=== PATIENT | female | born 1975 | race Caucasian/White ===

== ENCOUNTER 2018-09-13 01:50 | Outpatient (CLI) | payer MEDICAID, SELFPAY ==
[2018-09-13 13:04] LABS: HCG Quant, Pregnancy 13550 mIU/mL (1-3)
== END 2018-09-13 02:10 ==
PROVIDERS: PCP Nurse Practitioner Adult Health; Visit Provider Obstetrics & Gynecology
DX: N92.6 Irregular menstruation, unspecified (principal)
CPT/HCPCS: 36415; 84702

== ENCOUNTER 2018-09-15 02:56 | Outpatient (CLI) | payer MEDICAID, SELFPAY ==
[2018-09-15 08:52] LABS: HCG Quant, Pregnancy 19631 mIU/mL (1-3)
== END 2018-09-15 03:16 ==
PROVIDERS: PCP Nurse Practitioner Adult Health; Visit Provider Obstetrics & Gynecology
DX: N92.6 Irregular menstruation, unspecified (principal)
CPT/HCPCS: 36415; 84702

== ENCOUNTER 2018-11-02 08:54 | Emergency (ER) | payer MEDICAID, SELFPAY ==
--- NOTE | 2018-11-02 08:56 | W.ED.GENAD ---
Discharge Plan Disposition Patient Disposition: HOME Condition: Stable Discharge Details Chief Complaint: DentalOral Clinical Impression: Pain due to dental caries, Infected dental caries Primary Care Provider: DARIN MAHAN ED Provider: Krystle Parker Home Meds and New Rx's Prescriptions: New penicillin V potassium 500 mg tablet 500 mg PO QID 7 Days Qty: 28 RF: 0 Continued aspirin [Aspirin Childrens] 81 mg Tablet,Chewable 162 mg PO DAILY RF: 0 PNV cmb#95-ferrous fumarate-FA [] 28 mg iron- 800 mcg Tablet 1 tab PO DAILY RF: 0 Discharge Instructions Instructions: Dental Caries (ED) Additional Instructions: Take the antibiotics until finished. Take tylenol as needed and directed for pain. Call your dentist tomorrow morning to schedule a follow up appointment for re-evaluation. 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 Return immediately to the emergency department if you develop any worsening or new concerning symptoms. Discharge Data Discharge Physician: Krystle Parker Medical Decision Making 42yo F who is 13 weeks w/ c/o L upper dental pain for 5 days with concern for dental abscess. Pt appears nontoxic. BP on arrival 158/86. She has not taken any pain meds this morning for her dental pain. She denies any headache, blurry vision, neck pain, leg pain or swelling. She denies any previous history of preeclampsia with her pregnancies. Recheck BP 136/85. There is no abscess noted on exam. She has 2 areas of severe tooth decay left upper jaw with surrounding erythema and tenderness but no discrete abscess noted. No trismus, drooling or submandibular swelling. We will send home with a prescription for pen V K. She is instructed to call her dentist tomorrow morning to schedule a follow-up appointment for reevaluation, and to follow-up with her OB this week for continued monitoring of her blood pressure. She is instructed return here if she has any worsening or new concerning symptoms. HPI General Mode of arrival: ambulatory. Date/Time Provider Initiated Documentation: 11/02/18 08:55. Limitations to Documentation: no limitations. Information obtained by: patient. HPI Narrative: Patient is a 42-year-old female who presents to the ED with complaint of left upper toothache for the past 5 days. Patient states she has a history of decayed teeth in the area of her pain but has not had them extracted yet. Patient states she is now 13 weeks being followed by OB in [place]. Patient denies any recent antibiotics. She denies any fever, difficulty swallowing, headache or neck pain. She has not taken anything for pain today. Last menstrual period 07/31/2018. Related Data Home Medications Medication Instructions Recorded Confirmed PNV cmb#95-ferrous fumarate-FA 1 tab PO DAILY 11/02/18 11/02/18 [] aspirin [Aspirin Childrens] 162 mg PO DAILY 11/02/18 11/02/18 penicillin V potassium 500 mg PO QID 7 Days #28 tab 11/02/18 Previous Rx's Medication Instructions Recorded penicillin V potassium 500 mg PO QID 7 Days #28 tab 11/02/18 Allergies Allergy/AdvReac Type Severity Reaction Status Date / Time hydrocodone bitartrate AdvReac Intermediate Nausea Unverified 11/02/18 09:04 [From Vicodin] Review of Systems Review of Systems All systems reviewed & are unremarkable except as noted in HPI and below Constitutional Reports as per HPI, Denies chills and Denies fever(s) Eyes Denies blurry vision ENT Reports dental pain, Denies dizziness, Denies sore throat and Denies throat swelling Cardiovascular Denies chest pain and Denies dyspnea Respiratory Denies cough and Denies dyspnea Gastrointestinal Denies abdominal pain, Denies diarrhea and Denies vomiting Genitourinary Denies hematuria and Denies dysuria Musculoskeletal Denies back pain and Denies numbness Integumentary/Breasts Denies lesions and Denies rash Neurologic Denies dizziness, Denies focal weakness and Denies numbness Allergic/Immunologic Denies throat swelling [facility] Medical History Hypertension (Chronic) Surgical History History of section (Chronic) Hx of cholecystectomy (Chronic) Social History Smoking/Tobacco Use Status: Current every day Tobacco Type: cigarettes Alcohol Intake: never Drug use: Never Do you feel safe in your relationship?: Yes Exam Const General: cooperative, healthy appearing and no acute distress HENMT Head: normal to inspection Ears: hearing grossly normal bilaterally, external ears normal and TM's normal bilaterally General nose exam: external nose normal and nares normal Face and sinus: normal facial exam Mouth: oral mucosae normal Teeth image: 1. Black discoloration of remaining small portions of teeth, majority of both teeth decayed and missing. Erythema, mild edema, and tenderness to palpation of mucosa above this teeth. No fluctuance or abscesses noted. Throat: posterior oropharynx normal, tonsils normal, uvula midline and no peritonsillar masses Eyes General: appearance normal, both eyes and all related structures Neck Neck: normal visual inspection, no lymphadenopathy, no meningeal signs, trachea midline, supple and no anterior neck swelling Resp Effort & Inspection: normal respiratory effort and able to speak in complete sentences Cardio Rate: regular rate Skin General skin exam: no rashes or lesions noted Neuro General: alert, awake and oriented x3 Motor: muscle tone normal throughout Extrem General: normal to inspection and full ROM Psych Appearance: grossly normal Affect: normal affect
[2018-11-02 08:59] VITALS: BP 158/86; PULSE 85; RESP 16; TEMP 36.4; O2SAT 98
[2018-11-02 09:16] VITALS: BP 136/85; PULSE 79; RESP 16; O2SAT 98
== END 2018-11-02 09:17 | disposition home or self-care (01) ==
PROVIDERS: Emergency Provider Physician Assistant; PCP Nurse Practitioner Adult Health
DX: K02.9 Dental caries, unspecified (principal)
CPT/HCPCS: 99283

== ENCOUNTER 2022-06-29 08:12 | Emergency (ER) | payer MEDICAID, SELFPAY ==
[2022-06-29 08:17] VITALS: BP 182/97; PULSE 80; RESP 18; TEMP 36.5; O2SAT 98
--- NOTE | 2022-06-29 08:21 | ED.GENADUL_ITS ---
Discharge Plan Disposition Patient Disposition: Home Discharge Details Clinical Impression: Sprain of left foot Primary Care Provider: Shanice Galvez ED Provider: Jason Hernandez Home Meds and New Rx's Prescriptions: Continued fluoxetine 40 mg capsule 60 mg PO DAILY clindamycin HCl 150 mg capsule 150 mg PO TID Patient Comments: TAKE 3 CAPSULE BY MOUTH THREE TIMES A DAY amlodipine 2.5 mg tablet 2.5 mg PO DAILY trazodone 100 mg tablet 100 mg PO QHS Patient Comments: TAKE 1/2 TO 1 TABLET BY MOUTH AT BEDTIME NEEDED FOR SLEEP bupropion HCl 300 mg tablet extended release 24 hr 300 mg PO DAILY losartan-hydrochlorothiazide 100-12.5 mg tablet 1 tab PO DAILY Discharge Instructions Instructions: Foot Sprain (ED) Additional Instructions: Please wear walking boot for the next 2 weeks during any weightbearing activity. You may perform weightbearing activities as tolerated. If not improving fo llow-up with your primary care provider. You may continue to use [id number] pain medication as needed for discomfort and apply ice for 20 minutes at a time with at least 40 minutes in between applications to help with any swelling or discomfort. If you develop any new or significant worsening of symptoms feel free to return the emergency department for reassessment. Referrals: Shanice Galvez [Primary Care Provider] - 2 weeks (If not showing signs of improvement follow-up for consideration of referral to podiatry) Discharge Data Discharge Date/Time-TO BE ENTERED AT DEPARTURE: 06/29/22 09:05 Medical Decision Making Patient presenting to the emergency department for chief complaint of left foot injury. She states that 2 weeks ago she was dancing and injured her foot. She was initially seen and evaluated and told it was a sprain but due to continued significant pain and discomfort especially with walking she is here for evaluation. Patient denies any other injury or trauma. Denies any need for pain medication at this time. Physical exam shows point tenderness to the medial aspect of the midfoot otherwise exam is unremarkable. We will plan on performing radiological imaging for consideration of acute/subacute fracture. Review of radiological imaging and radiologist interpretation shows no acute fracture. Discussed treatment modalities with patient and after discussion patient states that she would prefer to be in a walking boot. We discussed standard care of foot sprain along with return and follow-up precautions. After discussion of diagnosis and plan of care patient has no further needs, questions, or concerns and states clear understanding to return to the emergency department for any worsening symptoms. This documentation was generated using STEARCLEAR dictation system, please disregard any oddities of phrase or misspellings. Imaging Data Radiologic Study: Attestation: I personally reviewed and interpreted this imaging study as follows: Imaging: X-Ray Radiologist's impression: EXAM: XR FOOT LT COMPLETE CLINICAL HISTORY: medial foot pain. TECHNIQUE: 2D digital imaging was performed. COMPARISON: No exams were available for comparison FINDINGS: 3 views No evidence of acute fracture or diastasis of the Lisfranc joint. No radiopaque foreign body. Bone density normal. No osseous lesions. Small sesamoid bone noted on the medial aspect the foot adjacent to the navicular tuberosity. This is most probably within the distal tibialis posterior tendon. Variant of normal. IMPRESSION: No significant osseous findings in foot. HPI General Mode of arrival: ambulatory . Date/Time Provider Initiated Documentation: 06/29/22 08:19 . Limitations to Documentation: no limitations . Information obtained by: patient and RN notes reviewed . History of Present Illness 46 year old F presents to the emergency department with the chief complaint of Left foot injury, described as moderate, Quality is described as aching, and is localized to the left and lower extremity. Patient reports no radiation. Patient started experiencing this week(s) (2) and it has been constant. No relieving factors improve symptom(s), No exacerbating factors reported . Patient notes no other symptoms.. Patient did receive the following treatments prior to arrival, none Related Data Home Medications Medication Instructions Recorded Confirmed amlodipine 2.5 mg tablet 2.5 mg PO DAILY 06/29/22 06/29/22 bupropion HCl 300 mg 24 hr tablet, 300 mg PO DAILY 06/29/22 06/29/22 extended release clindamycin HCl 150 mg capsule 150 mg PO TID 06/29/22 06/29/22 fluoxetine 40 mg capsule 60 mg PO DAILY 06/29/22 06/29/22 losartan 100 1 tab PO DAILY 06/29/22 06/29/22 mg-hydrochlorothiazide 12.5 mg tablet trazodone 100 mg tablet 100 mg PO QHS 06/29/22 06/29/22 Allergies Allergy/AdvReac Type Severity Reaction Status Date / Time hydrocodone bitartrate AdvReac Intermediate Nausea Unverified 06/29/22 08:23 [From Vicodin] General Stated Complaint: Orthopedic LUCIA: 4 Review of Systems Narrative: 6 systems reviewed and unremarkable except what is marked below. Musculoskeletal Musculoskeletal: Reports as per HPI, Reports arthralgias, Denies numbness and Denies tingling Integumentary/Breasts Skin/Breast: Denies erythema Neurologic Neurologic: Denies numbness and Denies tingling PFSH All Active Problems (Updated 06/29/22 @ 08:56 by Jason Hernandez NP) Sprain of left foot (Acute) Medical History (Updated 06/29/22 @ 08:56 by Jason Hernandez NP) Hypertension Surgical History History of section Hx of cholecystectomy Social History Smoking/Tobacco Use Status: Current every day Tobacco Type: cigarettes Smoking risk assessment performed?: Yes Alcohol Intake: never Drug use: Never Substance use type: does not use Do you feel safe at home: Yes Do you feel safe in your relationship?: Yes Exam Const General: cooperative, no acute distress and not ill appearing Orientation: alert, awake and oriented x3 Resp Effort & Inspection: normal respiratory effort, able to speak in complete sentences and no respiratory distress Cardio Rate: regular rate Rhythm: regular rhythm Pulses: posterior tibial pulses present and dorsalis pedis present Skin General skin exam: no rashes or lesions noted Neuro General: patient alert, patient awake, patient oriented x3, moves all extremities and no focal motor deficits Sensory Exam: no sensory deficits noted Extrem General: normal exam except as noted Left lower extremity: foot Details: normal to inspection, tenderness Location: of the medial foot Location: in the mid-section; not of the base of the 5th metatarsal, toes with normal ROM, no edema, vascular exam Details: dorsalis pedis pulse present, posterior tibial pulse present and normal capillary refill and motor-sensory exam Details: two point discrimination normal and light-touch normal; no unusual warmth Course Vital Signs Vital signs: Vital Signs Temperature 36.5 C 06/29/22 08:17 Pulse 80 06/29/22 08:17 Respiratory Rate 18 06/29/22 08:17 Blood Pressure 182/97 H 06/29/22 08:17 Pulse Oximetry 98 06/29/22 08:17 Temperature 36.5 C 06/29/22 08:17 Temperature Source Oral 06/29/22 08:17 Pulse 80 06/29/22 08:17 Respiratory Rate 18 06/29/22 08:17 Blood Pressure 182/97 H 06/29/22 08:17 Blood Pressure Position Sitting 06/29/22 08:17 Pulse Oximetry 98 06/29/22 08:17 Oxygen Delivery Method Room Air 06/29/22 08:17 Oxygen Flow Rate 0 06/29/22 08:17 Pain Level 6 06/29/22 08:17
--- OUTSIDE RECORDS SUMMARY | 2022-06-29 08:21 | XMS_ITS ---
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 748236034 Problem Dysmenorrhea N94.6 Active 556529276 Problem Body mass index (BMI) of 40.1 to 44.9 in adult Z68.41 Active 503775432 Problem Essential hypertension I10 Active 44315579 ALLERGIES Substance Reaction Event Type Date Status Vicodin vomiting Drug Allergy Nov, Active ENCOUNTERS Encounter Location Date Diagnosis [address] [id number] Nov, Surgery follow-up examination Z09 [address] [id number] Oct, [address] [id number] Sep, [facility] Op [address] [place], [place] [id number] 24 Sep, 2021 Menorrhagia with regular cycle N92.0 ; Abnormality of right breast on screening mammogram R92.8 ; Essential hypertension I10 and Body mass index (BMI) of 40.1 to 44.9 in adult Z68.[address] [id number] 23 Sep, 2021 [facility] [address] [place] [address] 09 Sep, [address] [id number] August, [address] [id number] 17 May, 2021 Menorrhagia with regular cycle N92.0 ; Abnormality of right breast on screening mammogram R92.8 ; Essential hypertension I10 and Body mass index (BMI) of 40.1 to 44.9 in adult Z68.[address] [id number] 15 May, [address] [id number] Apr, Breast cancer screening by mammogram Z12.[address] [id number] Nov, Encntr for sap portal consultant exam (general) (routine) w/o abn findings Z01.419 ; Encounter for screening mammogram for malignant neoplasm of breast Z12.31 and Encounter for screening for malignant neoplasm of cervix Z12.[address] [id number] 17 May, 2019 care and examination Z39.[address] [id number] Apr, Encounter for routine follow-up Z39.[address] [id number] Apr, [address] [id number] Apr, Supervision of elderly primigravida in third trimester O09.[address] [id number] Mar, Supervision of elderly multigravida in third trimester O09.[address] [id number] Mar, Supervision of elderly multigravida in third trimester O09.[address] [id number] Mar, Supervision of elderly multigravida in third trimester O09.523 ; Maternal care due to low transverse uterine scar from previous delivery O34.211 and Encounter for other general counseling or advice on contraception Z30.[address] [id number] Feb, Supervision of elderly multigravida in third trimester O09.523 and Encounter for immunization Z23 [address] [id number] Feb, [address] [id number] Feb, Supervision of elderly multigravida in third trimester O09.[address] [id number] Feb, [address] [id number] Feb, Supervision of elderly primigravida in third trimester O09.[address] [id number] Jan, [address] [id number] Jan, Encounter for supervision of elderly multigravida in second trimester, antepartum O09.522 and Flu vaccine need Z23 [address] [id number] 13 Dec, 2018 Supervision of elderly primigravida, second trimester O09.[address] [id number] Nov, Encounter for supervision of elderly multigravida in second trimester, antepartum O09.522 ; Maternal care due to low transverse uterine scar from previous delivery O34.211 and Tobacco smoking affecting in second trimester O99.[address] [id number] Oct, [address] [id number] Oct, Encounter for supervision of elderly multigravida in second trimester, antepartum O09.522 ; Encounter for screening examination for infectious disease Z11.9 ; Advanced maternal age, primigravida in first trimester, antepartum O09.511 and Maternal care due to low transverse uterine scar from previous delivery O34.[address] [id number] Oct, [address] [id number] Oct, [address] [id number] Sep, [address] [id number] Sep, Antepartum elderly multigravida in first trimester O09.521 ; Encounter for supervision of other normal , first trimester Z34.81 and Previous delivery, antepartum O34.[address] [id number] Sep, [address] [id number] August, Advanced maternal age, primigravida in first trimester, antepartum O09.511 ; Smoking (tobacco) complicating , first trimester O99.331 ; Chronic hypertension during O10.919 ; Supervision of other normal Z34.80 and Body mass index (BMI) of 40.1 to 44.9 in adult Z68.[address] [id number] August, [address] [id number] August, [address] [id number] August, [address] [id number] August, Irregular menses N92.[address] [id number] August, [facility] Op [address] [place], [place] [id number] Sep, [facility] [address] [facility] [address] [place], [place] [id number] Sep, Morbid obesity 278.01 ; Hypertension 401.9 and Cholelithiasis without obstruction 574.20 IMMUNIZATIONS Vaccine Route Administration Date Status COVID-19 (Moderna BOOSTER) mRNA,LNP-S,PF 50 mcg/0.25mL dose Unknown May 03, 2021 Adminis tered COVID-19 (Moderna) mRNA,LNP- S,PF 100 mcg/0.5mL dose Unknown September 21, 2020 Administered COVID-19 (Moderna) mRNA,LNP- S,PF 100 mcg/0.5mL dose Unknown August 22, 2020 Administered Tdap - Adult IM Intramuscular Mar 25, 2019 Administere d JEN - Flu VACC 6 MONTHS > IM Intramuscular Feb 06 9 Administered SOCIAL HISTORY Qualifiers Date Current Smoker REASON FOR REFERRAL FUNCTIONAL STATUS PLAN OF CARE Activity Details VITAL SIGNS Height 63 in 2021-06-15 Height 63 in 2019-12-18 Height 63 in 2019-06-15 Height 63 in 2019-05-20 Height 63 in 2019-03-25 Height 63 in 2018-10-16 Height 63 in 2018-09-26 Height 63 in 2018-09-12 Weight 241.4 lbs 2021-06-15 Weight 232.8 lbs 2019-12-18 Weight 213.8 lbs 2019-06-15 Weight 218.4 lbs 2019-05-20 Weight 230.2 lbs 2019-05-01 Weight 233.2 lbs 2019-04-24 Weight 230.0 lbs 2019-04-17 Weight 231.0 lbs 2019-04-10 Weight 233.2 lbs 2019-03-25 Weight 231.6 lbs 2019-03-13 Weight 234.4 lbs 2019-02-27 Weight 233.4 lbs 2019-02-06 Weight 231.6 lbs 2019-01-09 Weight 229.2 lbs 2018-12-12 Weight 229.2 lbs 2018-11-13 Weight 229.4 lbs 2018-10-16 Weight 235 lb 0 oz lbs 2018-09-26 Weight 228.4 lbs 2018-09-12 Temperature 97.5 degrees Fahrenheit Heart Rate 78 /min 2009-09-30 BMI 42.76 kg/m2 2021-06-15 BMI 41.23 kg/m2 2019-12-18 BMI 37.87 kg/m2 2019-06-15 BMI 38.68 kg/m2 2019-05-20 BMI 41.31 kg/m2 2019-03-25 BMI 40.636 kg/m2 2018-10-16 BMI 41.62 kg/m2 2018-09-26 BMI 40.45 kg/m2 2018-09-12 Blood pressure systolic 158 mm Hg Blood pressure diastolic 88 mm Hg 2021-05 MEDICATIONS Medication Instructions Dosage Frequency Start Date End Date Duration Status Lisinopril 20 MG Orally Once a day 1 tablet 24h 30 day(s) Active Aspirin 81 81 MG Orally Once a day 2 tablets 24h Not-Takin g Norethindrone 0.35 MG Orally Once a day 1 tablet 24h 28 day(s) Active Complete 14-0.4 MG Orally Once a day 1 tablet 24h Not-Takin g PROCEDURES Procedure Date Ordered Result Body Site CARE VISIT Jun 15, 2019 SUBSEQUENT CARE May 01, 2019 SUBSEQUENT CARE November 13, 2018 SUBSEQUENT CARE Jan 09, 2019 SUBSEQUENT CARE Mar 25, 2019 SUBSEQUENT CARE Apr 10, 2019 CARE VISIT May 20, 2019 SUBSEQUENT CARE Feb 27, 2019 IMMUNIZATION ADMINISTRATION Mar 25, 2019 INITIAL CARE VISIT October 16, 2018 SUBSEQUENT CARE Apr 17, 2019 IMMUNIZATION ADMINISTRATION Feb 06, 2019 Tdap - Adult Mar 25, 2019 SUBSEQUENT CARE Dec 12, 2018 SUBSEQUENT CARE Mar 13, 2019 JEN - Flu VACC 6 MONTHS > Feb 06, 2019 SUBSEQUENT CARE Feb 06, 2019 SUBSEQUENT CARE Apr 24, 2019 RESULTS Name Result Date Reference Range CBC, NO DIFF 2021-10-20 WBC 8.6 4.8-10.8 RBC 4.16 4.20-5.40 HGB 14.0 12.0-16.0 HCT 41.8 37.0-47.0 MCV 100.5 81.0-99.0 MCH 33.7 27.0-31.0 MCHC 33.5 32.0-37.0 RDW-CV 13.7 11.5-14.5 PLT 312 130-400 SURGICAL PATH 2021-10-20 COVID 19 [facility] PCR (Cepheid) AUTHORIZED ONLY 2021-10-20 SARS-CoV-2, PCR NOT DETECTED NOT DETECTED COV 4PLX COMMENT This test has been authorized by FDA under an EUA for use by authorized laboratories. False negative results may occur if virus is present at levels below the analytical limit of detection. US PELVIC ULTRASOUND 2021-06-21 US BREAST RIGHT LIMITED 2021-06-21 MG MAMMOGRAPHY BILATERAL SCREENING 2021-06-15 MG MAMMOGRAPHY BILATERAL SCREENING 2020-02-02 Pap Lb, rfx HPV all pth 2019-12-18 . Note: . Clinical history: DIAGNOSIS: Specimen adequacy: Additional comment: Recommendation: Performed by: Electronically signed by: Test ordered: Maturation index: Amended report: Addendum: QC reviewed by: Cytology history: Special procedure: QA comment: Diagnosis provided by: Source: Pathologist provided ICD9: Clinician provided ICD9: Interpretation LBP CPT Code Automation HEMOGLOBIN/HEMATOCRIT 2019-05-06 HGB 11.7 12.0-16.0 HCT 34.1 37.0-47.0 CBC, WITH MANUAL DIFF 2019-05-05 WBC 10.4 4.8-10.8 RBC 4.26 4.20-5.40 HGB 13.5 12.0-16.0 HCT 39.1 37.0-47.0 MCV 91.8 81.0-99.0 MCH 31.7 27.0-31.0 MCHC 34.5 32.0-37.0 RDW-CV 13.7 11.5-14.5 PLT 337 130-400 MPV 9.6 7.4-10.4 MANUAL DIFF MANUAL DIFFERENTIAL SEGS 69 42-75 BANDS 0-6 LYMPHS 27 20-51 CAMERON. LYMPHS <=1 MONOS 3 2-9 EOS 1 0-3 BASO 0-1 METAS MYELOS NRBC PLT ESTIMATE ADEQUATE ADEQUATE RBC MORPH NORMAL NORMAL ANISO POIK MICRO MACRO HYPO POLYCHROM TYPE AND SCREEN 2019-05-05 ABORh O POSITIVE ANTIBODY SCREEN NEGATIVE NEGATIVE TS COMM Pre-op Type & Screen specimens are valid for 7 days. If the patient has been transfused or been within the past 3 months, the specimen is only valid for 3 days. URINE DIP ([facility]) 2019-05-01 Color Clarity Glucose negative Bilirubin Ketones Specific Brandon Blood PH Protein negative Uro Nitrates Leukocytes URINE DIP ([facility]) 2019-04-24 Color Clarity Glucose negative Bilirubin Ketones Specific Brandon Blood PH Protein negative Uro Nitrates Leukocytes URINE DIP ([facility]) 2019-04-17 Color Clarity Glucose negative Bilirubin Ketones Specific Brandon Blood PH Protein negative Uro Nitrates Leukocytes URINE DIP ([facility]) 2019-04-10 Color Clarity Glucose negative Bilirubin Ketones Specific Brandon Blood PH Protein negative Uro Nitrates Leukocytes URINE DIP ([facility]) 2019-03-25 Color Clarity Glucose negative Bilirubin Ketones Specific Brandon Blood PH Protein negative Uro Nitrates Leukocytes URINE DIP ([facility]) 2019-03-13 Color Clarity Glucose negative Bilirubin Ketones Specific Brandon Blood PH Protein negative Uro Nitrates Leukocytes URINE DIP ([facility]) 2019-02-27 Color Clarity Glucose negative Bilirubin Ketones Specific Brandon Blood PH Protein negative Uro Nitrates Leukocytes CBC, WITH AUTO DIFF 2019-02-06 WBC 11.9 4.8-10.8 RBC 3.52 4.20-5.40 HGB 11.5 12.0-16.0 HCT 33.7 37.0-47.0 MCV 95.7 81.0-99.0 MCH 32.7 27.0-31.0 MCHC 34.1 32.0-37.0 RDW-CV 13.4 11.5-14.5 PLT 286 130-400 MPV 10.1 7.4-10.4 NE% 78.0 42.2-75.2 LY% 16.4 20.5-51.1 MO% 3.6 1.7-9.3 EO% 1.4 0.9-2.9 BA% 0.3 0.0-0.8 NE# 9.2 1.4-6.5 LY# 2.0 1.2-3.4 MO# 0.4 0.1-0.6 EO# 0.2 0.0-0.2 BA# 0.0 0.0-0.2 URINE DIP ([facility]) 2019-02-06 Color Clarity Glucose negative Bilirubin Ketones Specific Brandon Blood PH Protein negative Uro Nitrates Leukocytes GLUCOSE JORGE GESTATIONAL(50GM) 2019-02-06 GLUCOSE - 1 HR POST 129 <=135 URINE DIP ([facility]) 2019-01-09 Color Clarity Glucose negative Bilirubin Ketones Specific Brandon Blood PH Protein negative Uro Nitrates Leukocytes CBC, WITH AUTO DIFF 2018-12-12 WBC 10.1 4.8-10.8 RBC 3.91 4.20-5.40 HGB 12.7 12.0-16.0 HCT 37.3 37.0-47.0 MCV 95.4 81.0-99.0 MCH 32.5 27.0-31.0 MCHC 34.0 32.0-37.0 RDW-CV 13.4 11.5-14.5 PLT 289 130-400 MPV 10.3 7.4-10.4 NE% 72.3 42.2-75.2 LY% 19.8 20.5-51.1 EO% 2.2 0.9-2.9 BA% 0.5 0.0-0.8 NE# 7.3 1.4-6.5 LY# 2.0 1.2-3.4 MO# 0.5 0.1-0.6 EO# 0.2 0.0-0.2 BA# 0.1 0.0-0.2 ALPHA FETOPROTEIN OSB ([id number]) 2018-12-12 Results Report Test Results: *Screen Negative* Gest. Age on Collection Date 18.6 Gestat. Age Based On LMP Maternal Age At NATHAN 41.4 Race Weight 269 Insulin Dep Diabetes No Multiple Gestation No AFP Value 34.1 AFP MoM 1.05 OSBR [place] 1 [place] [id number] Interpretation Comment Comment: Comment HEPATITIS B SURFACE ANTIGEN, 2018-12-12 HEP B SURFACE AG NON-REACTIVE NON-REACTIV E RUBELLA IGG ANTIBODY 2018-12-12 RUBELLA 16.2 >=10.0 RUB HEAD REFERENCE RANGE: (IU /mL) <5.0 : NON-IMMUNE 5.0 - 9.9 : SORTO ZONE >= 10.0 : IMMUNE TYPE AND SCREEN, 2018-12-12 ABORh O POSITIVE ANTIBODY SCREEN NEGATIVE NEGATIVE TS COMM Pre-op Type & Screen specimens are valid for 7 days. If the patient has been transfused or been within the past 3 months, the specimen is only valid for 3 days. HIV12P 2018-12-12 HIV1/O/2 Abs,P24Ag NON-REACTIVE NON-REACT AILYN SYPHILIS, 2018-12-12 SYPHILIS NON-REACTIVE NON-REACTIVE URINE DIP ([facility]) 2018-12-12 Color Clarity Glucose negative Bilirubin Ketones Specific Brandon Blood PH Protein negative Uro Nitrates Leukocytes CHLAMYDIA/GC by PCR URINE 2018-11-13 C.trach by PCR NOT DETECTED NOT DETECTED N. gonorrhoeae PCR NOT DETECTED NOT DETEC JANNETTE USR The patient should n ot have urinated for at least 1 hour prior to specimen collection. Female patients should not cleanse the labial area prior to collecting the specimen. Male patients should n URINE DIP ([facility]) 2018-11-13 Color Clarity Glucose negative Bilirubin Ketones Specific Brandon Blood PH Protein negative Uro Nitrates Leukocytes US OB GREATER THAN 14 WEEKS 2018-12-12 URINE DIP ([facility]) Color Clarity Glucose negative Bilirubin Ketones Specific Brandon Blood PH Protein negative Uro Nitrates Leukocytes CULTURE URINE 2018-10-16 CYSTIC FIBROSIS MUTATION 97 ([id number]) 2018-10-16 Interpretation: No variant detected. Cystic Fibrosis Mutation 97 Comment: InformaSeq() with XY Analysis 2018-10-16 Results Comment Screen results Comment Chromosome 21 result Comment Chromosome 21 Interpretation Comment Chromosome 18 Result Comment Chromosome 18 Interpretation Comment Chromosome 13 result Comment Chromosome 13 Interpretation Comment Sex Chromosome Result Comment Sex Chromosome Interpretation Comment Comments Comment Number 1 Gestational Age at Collection 10.7 Race Weight 229 Indication for Testing Comment Test Description Comment Test Limitations Comment Disclaimer Comment Director Review Comment PDF . 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 end of september, stopped on 10/30. 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 6 wk pp, slowly starting to go back to work, sleep is going ok, nursing seems to be well, POLICE SERVICE TECHNICIAN 2 week postop , nursing is going well, supply is good, he sleeps in bed with them and usually sleeps from 11pm-4am, POLICE SERVICE TECHNICIAN delivery with bilateral tubal ligation, OB follow up, OB follow up, OB follow up, OB follow up, Preop for delivery with bilateral tubal ligations, OB follow up, schedule , OB follow up, Tdap, OB follow up ob , Abscess tooth, OB follow up, OB follow up, OB follow up, Headache, OB follow up, left msg w/msg mgmt, Informaseq-incorrect race, OB INITIAL EXAM, gender results, OBnew OB, genetic testing, *POLICE SERVICE TECHNICIAN 2 week follow up, 09/16 Lab results, *UPDATE HCG Numbers, BP medication, discussion-options, + home upt, pre load, AMANDA Lap alejandra poss open, AMANDA gallstones. Pthad GB problems last fall. Pt got very ill a few weeks ago and had a u/s that shows stones. Insurance Providers Health Insurance Type Health Plan Insurance Address Health Plan Insurance Phone Health Plan Insurance Name Health Plan Coverage Dates Member ID Patient Relationship to Subscriber Patient Address Patient Phone Patient Name Patient Date of Subscriber ID Subscriber Name Subscriber Date of Group No [place] [address] [facility] [id number] [place] self Petra Maldonadokarsten rs [id number] [place] [address] ATTN CLAIMS [facility] [id number] [place] Desmaryamleo rs [id number]
--- OUTSIDE RECORDS SUMMARY | 2022-06-29 08:21 | XMS_ITS | Continuity of Care Document ---
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 Role Phone Shanice Galvez APRN Primary Care Physician Encounter [facility] [id number] Date(s): 06/20/22 - 06/20/[address] [address] Encounter Diagnosis Dental caries(Discharge Diagnosis) - 06/20/22 Sprain of left foot(Discharge Diagnosis) - 06/20/22 Discharge Disposition: Home or Self Care Attending Physician: Alfred Cedillo MD Admitting Physician: Alfred Cedillo MD Allergies, Adverse Reactions, Alerts Substance Reaction Severity Status Vicodin Unknown Active Functional Status 06/20/22 Other exposure to Infectious Disease Non e Medications amLODIPine 2.5 mg oral tablet 2.5 mg = 1 tab, Oral, Daily, # 30 tab, 0 Refill(s) Start Date: 06/20/22 Status: Ordered amoxicillin 500 mg oral capsule 500 mg = 1 cap, Oral, TID, X 10 days, # 30 cap, 0 Refill(s), 06/30/22 9:47:00 EST, [id number], 162, cm, 06/20/22 8:50:00 EST, Height/Length Dosing, 105, kg, 06/20/22 8:50:00 EST, Weight Dosing Start Date: 06/20/22 Stop Date: 06/30/22 Status: Ordered buPROPion 300 mg/24 hours (XL) oral tablet, extended release 300 mg = 1 tab, Oral, Daily, # 30 tab, 0 Refill(s) Start Date: 06/20/22 Status: Ordered FLUoxetine 20 mg oral capsule 20 mg = 1 cap, Oral, Daily, # 30 cap, 0 Refill(s) Start Date: 06/20/22 Status: Ordered losartan-hydrochlorothiazide 100mg-12.5mg oral tablet TAKE ONE TABLET BY MOUTH EVERY DAY FOR BLOOD PRESSURE Start Date: 06/20/22 Status: Ordered traZODone 100 mg oral tablet 100 mg = 1 tab, Oral, BID, # 180 tab, 0 Refill(s) Start Date: 06/20/22 Status: Ordered Vital Signs Most recent to oldest [Reference Range]: 1 Temperature Temporal Artery [36-38 Deg C ] 36 Deg C (06/20/22 8:27 AM) Peripheral Pulse Rate [60-100 bpm] 84 bp m (06/20/22 8:27 AM) Respiratory Rate [12-24 br/min] 16 br/mi n (06/20/22 8:27 AM) Blood Pressure [90-140/60-90 mmHg] 168/9 4mmHg *HI* (06/20/22 8:27 AM) Weight Dosing 105.00 kg (06/20/22 8:50 AM) Weight Estimated 105.00 kg (06/20/22 8:27 AM) Height/Length Dosing 162.000 cm (06/20/22 8:50 AM) Height/Length Estimated 162.000 cm (06/20/22 8:27 AM) Social History Social History Type Response Tobacco Never tobacco user T obacco Use:. Sex Physician Emergency department Note * Doug Robison MD: PERFORM, MODIFY Event Display: ED Note Physician Authored Date: [id number] MG VASQUEZ :1975 Age:46 years Sex:Female Visit Date:06/20/2022 Primary Care Physician: Shanice Galvez APRN Basic Information Time Seen: Doug Robison MD / 06/20/2022 09:39 Chief Complaint pt reports dental pain left upper mouth starting . pt reports left sided facial swelling. motrin this AM History Of Present Illness: Chronic??dental decay,??increasing dental pain over the last few days left upper??dentition,??also complaining of some discomfort in her foot from??dancing 4 days ago. ??Hurts with walking,??but has been ambulatory.?? Ecchymoses, no bony tenderness; points to area under arch. ??States she did not??have pain initially but??developed??a day or 2 after dancing,??now less painful if walking on outside of her??foot. ??Has taken low-dose Motrin.?? Patient acknowledges 6+ months of??dental decay/pain,it became acutely worse over the last??day or so with some slight facial swelling. ??No fevers. Review of Systems: Denies any antecedent illness or injury;??no cough, no trouble breathing, no fevers, no vomiting ordiarrhea, no swollen limbs,??no swollen joints, no rashes, no neurodeficits. Physical Exam Vitals & Measurements T:??36?C ??(Temporal Artery)?? HR:??84??(Peripheral)?? RR:??16?? BP:??168/94?? SpO2:??97%?? HT:??162.000??cm?? WT:??105.00??kg??(Estimated)?? Pain Score:??4?? O2 Therapy:??Room air?? Review of Systems: Constitutional: [No fevers] ENT: [Upper left dentalgia; chronic dental decay] Respiratory: [No shortness of breath, cough] Cardiovascular: [No Chest pain or palpitations] Gastrointestinal: [No nausea, vomiting, or diarrhea] Musculoskeletal: [No acute back pain, neck pain, joint pain; left foot arch discomfort] Integumentary: [No rash, pruritus, abrasions] Neurologic: [No focal sensory or motor complaints] ?? Physical Exam: General: [Alert and oriented, well nourished, no acute distress].?? Eye: [PERRL, EOMI, normal conjunctiva]. HENT: [Normocephalic, normal hearing, moist oral mucosa, no scleral icterus, no nasal discharge].? Minimal swelling left??maxillary area;??eroded premolar??left upper??dentition; black, down to gumline Neck: [Ranging neck, normal inspection].?No adenopathy Lungs: [Clear to auscultation, non-labored respiration, no tachypnea].?? Heart: [Normal rate, regular rhythm, no murmur, gallop or edema]. Musculoskeletal: [Normal range of motion and strength, no tenderness or swelling].?? No bony tenderness??in left foot or ankle; mild discomfort left arch, no swelling appreciable, no pain on axial load of??metatarsals Skin: [Skin is warm, dry and pink, no rashes or lesions]. Neurologic: [Awake, alert and oriented X4, normal tone, moving all extremities with good strength].[Ambulation intact; complains of discomfort with??normal walking but not with walking on the outside of her left foot.??does not have antalgic gait]. Psychiatric: [Cooperative, appropriate mood and affect]. Procedure No Qualifying Data Assessment/Plan Dental caries; need for multiple extractions; I warned patient she is at risk of losing??many teeth??needs dentist SOFI[facility].?? Tylenol/Motrin for discomfort, dilute peroxide rinses.?? I recommended??moresupportive footwear/arches for her left??foot sprain. 1.??Dental caries??K02.9 2.??Sprain of left foot??S93.602A Patient Discharge Condition Good Discharge Disposition Home Medication Reconciliation Unchanged amLODIPine (amLODIPine 2.5 mg oral tablet)1 tab Oral (given by mouth) every day. ?? buPROPion (buPROPion 300 mg/24 hours (XL) oral tablet, extended release)1 tab Oral (given by mouth)every day. ?? FLUoxetine (FLUoxetine 20 mg oral capsule)1 Capsules Oral (given by mouth) every day. ?? losartan-hydrochlorothiazide (losartan-hydrochlorothiazide 100mg-12.5mg oral tablet)TAKE ONE TABLETBY MOUTH EVERY DAY FOR BLOOD PRESSURE. ?? traZODone (traZODone 100 mg oral tablet)1 tab Oral (given by mouth) 2 times a day. Problem List/Past Medical History Ongoing No qualifying data Historical No qualifying data Allergies Vicodin Social History Electronic Cigarette/Vaping Electronic Cigarette Use: Unknown/not obtained. Tobacco Never tobacco user Tobacco Use:. Electronically Signed on 06/20/22 09:48 AM Doug Robison MD Electronically Signed on 06/20/22 09:54 AM Doug Robison MD Emergency department Discharge instructions * Doug Robison MD: PERFORM Event Display: ED Discharge Information Authored Date: [id number] MG VASQUEZ :1975 Age:46 years Sex:Female Visit Date:06/20/2022 Primary Care Physician: Shanice Galvze APRN Discharge Instructions We would like to thank you for allowing us to assist you with your healthcare needs. The following includes patient education materials and information regarding your injury/illness. Diagnosis from Today's Visit Dental caries Sprain of left foot Discharge Vitals Temperature??(Temporal Artery) 96.8 ??F (36 ??C) Heart Rate??(Peripheral) 84 Respiratory Rate?? 16 Blood Pressure?? 168/94?? Height?? 63.78 in (162.000 cm) Weight??(Estimated) 231.52 lb (105.00 kg) Allergies Vicodin What to Do Next Instructions from Your Care Team Tylenol/Motrin for discomfort;??take it easy to??with ambulation,??use more supportive??footwear/insoles??for foot sprain.?? Amoxicillin??for 10 days for??dental infection. ??This will not fix your rotting teeth. ??You need to see a dentist SOFI[facility] otherwise you are at risk of losing all of your upperleft-sided dentition.?? Rinse with dilute peroxide??(1 part peroxide 4 parts water)??after meals and before bed. ??Return emergency if increasing facial swelling, pain fevers??or anything else acutely worsens. You were treated today on an emergency basis; it may be gaviria to contact your primary care provider to notify them of your visit today. You may have been referred to your regular doctor or a specialist, please follow up as instructed. If your condition worsens or you can't get in to see the doctor, contact the Emergency Department. Medications What How Much When Why Instructions Next Dose New amoxicillin (amoxicillin 500 mg oral capsule) 1 Capsules Oral (given by mouth) 3 times a day Dental caries Sprain of left foot Duration: 10 Days Pickup at [id number] Unchanged amLODIPine (amLODIPine 2.5 mg oral tablet) 1 tab Oral (given by mouth) Every day Unchanged buPROPion (buPROPion 300 mg/ 24 hours (XL) oral tablet, extended release) 1 tab Oral (given by mouth) Every day Unchanged FLUoxetine (FLUoxetine 20 mg oral capsule) 1 Capsules Oral (given by mouth) Every day Unchanged losartan-hydrochlorothiazide (losartan-hydrochlorothiazide 100mg- 12.5mg oral tablet) TAKE ONE TABLET BY MOUTH EVERY DAY FOR BLOOD PRESSURE ?? Unchanged traZODone (traZODone 100 mg oral tablet) 1 tab Oral (given by mouth) 2 times a day Pharmacy Information [facility]: [address] [place] [address] [phone] Patient/Air Tube Releaser Signature Patient Name:MG VASQUEZ I have received this information and my questions have been answered. Patient/Air Tube Releaser Name: Patient/Air Tube Releaser Signature: Relationship to Patient: Witness Name/Signature: Date: Electronically Signed on: 06/20/2022 09:48 ESTSigned by:Fran Patient Care team information Care Team Personnel Name: Shanice Galvez APRN Position: Physician Member Role: Primary Care Physician Address: Address: [address] Name: Lana Payan I Position: Nurse Member Role: ED Nurse Name: Doug Robison MD Position: Physician Member Role: ED Physician Address: Address: [facility] EM[facility] DEPT [address] [place] [address] Care Team Related Persons Name: CLAUDE VASQUEZ
--- NOTE | 2022-06-29 08:40 | DI.RAD_ITS ---
Exam(s) XR FOOT LT COMPLETE EXAM: XR FOOT LT COMPLETE CLINICAL HISTORY: medial foot pain. TECHNIQUE: 2D digital imaging was performed. COMPARISON: No exams were available for comparison FINDINGS: 3 views No evidence of acute fracture or diastasis of the Lisfranc joint. No radiopaque foreign body. Bone density normal. No osseous lesions. Small sesamoid bone noted on the medial aspect the foot adjacen t to the navicular tuberosity. This is most probably within the distal tibialis posterior tendon. V ariant of normal. IMPRESSION: No significant osseous findings in foot. DATA REPOSITORY: RADIATION DOSE DELIVERED:
== END 2022-06-29 09:05 | disposition home or self-care (01) ==
PROVIDERS: Emergency Provider Nurse Practitioner Family; PCP Nurse Practitioner Adult Health
DX: S93.692A Other sprain of left foot, initial encounter (principal); X58.XXXA Exposure to other specified factors, initial encounter
CPT/HCPCS: 29515; 99283; 73630